=== PATIENT | male | born 1970 | race Caucasian/White ===

== ENCOUNTER → 2016-04-24 | Outpatient (CLI) | payer OTHER ==
[~2016-04-24] MED LIST: ACET-1256 PO; HYDR-5688 PO; IBUP-103 PO; NAPR1TAB9 PO
== END | disposition home or self-care (01) ==
LOC: C.LAB 20:11
DX: Z02.83 Encounter for blood-alcohol and blood-drug test (principal)

== ENCOUNTER 2016-06-30 21:55 | Emergency (ER) | payer OTHER ==
[~2016-06-30] VITALS: Ht 172.7 cm; Wt 64.6 kg
[~2016-06-30 21:55] MED LIST changes: -ACET-1256 PO; -HYDR-5688 PO; -NAPR1TAB9 PO
[2016-06-30 21:58] VITALS: BP 126/81; TEMP 36.9; Ht 172.7 cm; Wt 64.6 kg
[2016-06-30] MEDS ORDERED: KETOROLAC TROMETHAMINE 60 MG/2 ML VIAL IM STA (22:16)
[2016-06-30] MEDS ORDERED: TROLAMINE SALICYLATE 10% CRM 255 APPLN/85 GM TUBE EXT STA (22:16)
[2016-06-30] MEDS ORDERED: OXYCODONE IR HOME PACK PO ONE (22:30)
[2016-06-30 22:44] VITALS: PULSE 84; O2SAT 99
--- NOTE | 2016-07-01 03:05 | EMERGENCY ROOM VISIT NOTE ---
History First contact with patient: 22:12 Chief Complaint: SHOULDER PAIN Stated Complaint: RT SHOULDER AREA PAIN History of Present Illness The patient is a 45 year old male who presents to the Emergency Room with complaints of right upper back pain for the past month that is steadily getting worse described as aching, ranging in severity currently 6 out of 10 worse with movement and better with rest. 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 No fall. Patient denies chest pain, dyspnea, clavicular pain, spinal pain , numbness, tingling. No direct injury to the area. Review of Systems See HPI for pertinent positives & negatives. A total of 10 systems reviewed and were otherwise negative. Past Medical/Surgical History Medical Problems: (1) Asthma (2) Back pain (3) Back pain, chronic (4) Bronchitis (5) Cervical strain (6) closed reduction right hand (7) Migraine (8) Neck pain (9) Neck pain, chronic (10) Neck pain, chronic (11) Right hand paresthesia (12) Right shoulder pain (13) Sciatica (14) Shoulder pain, left (15) skin problems (16) stomach ulcer Family History Diabetes mellitus Heart disease Hypertension Lung disease Social History Smoking Status: Current Every Day Smoker Alcohol Use: occasionally Drug Use: none Marital Status: in relationship Housing Status: lives with significant other Occupation Status: employed Current/Historical Medications Scheduled PRN Ibuprofen Tab (Advil), 800 MG PO Q8 PRN for Pain or Fever Naproxen (Aleve), 440-660 MG PO 2-3XD PRN for Pain Allergies Coded Allergies: Carrot (Verified Allergy, Severe, "THROAT SHUTS", 06/30/16) Onion (Verified Allergy, Mild, GI SYMPTOMS, 06/30/16) No Known Drug Allergy (Verified Allergy, Unknown, none, 06/30/16) Physical Exam Vital Signs Date Time Temp Pulse Resp B/P Pulse Ox O2 Delivery O2 Flow Rate FiO2 06/30/16 22:44 84 18 99 Room Air 06/30/16 21:58 36.9 52 18 126/81 98 Room Air Pain Rating (0-10): 9.0 Physical Exam VITALS: Vitals are noted on the nurse's note and reviewed by myself. Vital signs stable. GENERAL: Pleasant male, in no acute distress, nondiaphoretic, well-developed well-nourished. SKIN: Capillary reflex less than 2 seconds. HEENT: Normocephalic. PERRLA. EOMI. Nares patent. Mucous membranes moist. Neck is supple without nuchal rigidity. HEART: Regular rate and rhythm without murmurs gallops or rubs. LUNGS: Clear to auscultation bilaterally without wheezes, rales or rhonchi. No retractions or accessory muscle use. ABDOMEN: Positive bowel sounds x 4. Normal tympanic percussion. Soft, nontender, without masses or organomegaly. Penn sign negative. No guarding or rebound tenderness. MUSCULOSKELETAL: No gross musculoskeletal defects. No thoracic or lumbar tenderness on exam, right upper playback operator to palpation easily reproducing symptoms NEURO: Patient was alert and oriented to person place and time. Normal sensation to light and sharp touch. No focal neurological deficits. Medical Decision & Procedures Medications Administered Medications (Trade) Dose Ordered Sig/Pollo Route Start Time Stop Time Status Last Admin Dose Admin Ketorolac Tromethamine (Toradol Inj) 60 mg NOW STAT IM 06/30/16 22:16 06/30/16 22:21 DC 06/30/16 22:33 60 MG Oxycodone HCl (Roxicodone Immediate Rel 5MG Home Pack) 1 homepack UD ONCE PO 06/30/16 22:30 06/30/16 22:31 DC 06/30/16 22:33 1 HOMEPACK Trolamine Salicylate (Myoflex Cream) 1 appln NOW STAT EXT 06/30/16 22:16 06/30/16 22:21 DC 06/30/16 22:33 1 APPLN ED Course Prior records/ancillary studies reviewed. Triage Nursing notes reviewed. The patient's history was concerning for back pain. Differential diagnosis: Etiologies such as musculoskeletal, disc herniation, fracture, aortic disease, metastatic disease, cord compression, discitis, infection, renal colic, gastrointestinal, acute exacerbation of chronic back pain, sciatica, cauda equina, as well as others were entertained. Physical findings: As above. No focal neurologic findings noted. ER treatment provided: Toradol, OxyIR home pack On reassessment the patient felt better. Diagnostics interpreted by me: Deferred This appears to be consistent with thoracic strain. Patient was neurovascularly and neurologically intact. No deficits on exam. No spinal pain. He was advised to stretch the area out and take medications as directed. He was advised to follow-up with orthopedics if symptoms persist for possible physical therapy or here in the ER sooner for severe pain, numbness, tingling, worsening signs or symptoms or as needed. The patient's physical examination and detailed history did not reveal any red flags for back pain such as those listed in the differential diagnosis. Therefore advanced diagnostics and consultations were felt to be unwarranted. By the evaluation outlined above emergent etiologies such as fracture, aortic disease, metastatic disease, infection, renal colic, gastrointestinal, cord compression, cauda equina, as well as others were deemed relatively unlikely. The pt informed about the findings as listed above. All questions were answered and pleased with the treatment. Return instructions were outlined and the patient was discharged in stable condition. Referral: The patient was referred back to orthopedics and/or primary care physician for follow-up in 2 to 3 days for a recheck of the current condition. Medical Decision As above Impression Primary Impression: Muscle strain of right upper back Departure Information Dispostion Home / Self-Care Condition GOOD Referrals Milind Banuelos MD Forms HOME CARE DOCUMENTATION FORM, Work Instructions, Return To Work: 1 day IMPORTANT VISIT INFORMATION Patient Instructions Back Pain - [facility], [facility] Additional Instructions Oxycodone (OxyIR) 5mg: Take 1-2 pills every four hours for breakthrough pain. Avoid alcohol, operating machinery or dangerous equipment, working on ladders or roofs, DRIVING, or situations where being under the influence may be dangerous. It is recommended to use an ikrv-lrk-onaiygz stool softener such as Colace, 100mg twice daily while taking this medication to avoid constipation. Oxycodone/Acetaminophen (Percocet) 5/325mg: Take 1-2 pills every four hours for breakthrough pain. Avoid alcohol, operating machinery or dangerous equipment, working on ladders or roofs, DRIVING, or situations where being under the influence may be dangerous. It is recommended to use an ducy-wsi-ytrjcfd stool softener such as Colace, 100mg twice daily while taking this medication to avoid constipation. Ibuprofen(Motrin, Advil) may be used for fever or pain. Use 600mg every six hours as needed. Take with food. Avoid using more than 2400mg in a 24 hour period. Do not use 2400mg per day for more than three consecutive days without physician direction. Prolonged inappropriate use can lead to stomach upset or ulcers. This medication can be taken if you need to drive, work, or perform activities which may be dangerous when taking narcotic pain medication. (AND/OR) Acetaminophen(Tylenol) may be used for fever or pain. Use 1000mg every six hours as needed. Avoid using more than 3000mg in a 24 hour period. This medication can be taken if you need to drive, work, or perform activities which may be dangerous when taking narcotic pain medication. Rest and avoid heavy lifting until your symptoms resolve and then gradually return to full activity. A good rule of thumb is if it hurts your back to perform a certain activity, then it should be avoided until you are healthy again. A heating pad, warm compresses, or a hot shower may help with tight muscles and can be done several times a day as needed. Stretch the area out as shown in the ER. Continue current medications. Return to the ER immediately for any numbness, tingling, severe pain, loss of control of your bowels or bladder, inability to walk, or as needed. Follow up with your primary care physician/orthopedics within 3-5 days for a recheck of your current condition. Work Instructions Return To Work: 1 day Problem Qualifiers Primary Impression: Muscle strain of right upper back Encounter type: initial encounter Qualified Codes: S29.012A - Strain of muscle and tendon of back wall of thorax, initial encounter
== END 2016-06-30 22:46 | disposition home or self-care (01) ==
LOC: C.EDB 21:56
DX: S23.3XXA Sprain of ligaments of thoracic spine, initial encounter (principal); X58.XXXA Exposure to other specified factors, initial encounter; J45.909 Unspecified asthma, uncomplicated; F17.200 Nicotine dependence, unspecified, uncomplicated; Z87.828 Personal history of other (healed) physical injury and trauma; Z87.19 Personal history of other diseases of the digestive system; Z91.018 Allergy to other foods; Z83.3 Family history of diabetes mellitus; Z82.49 Family history of ischemic heart disease and other diseases of the circulatory system

== ENCOUNTER 2016-11-05 19:28 | Emergency (ER) | payer OTHER ==
[~2016-11-05] VITALS: Ht 170.2 cm; Wt 64.2 kg
[2016-11-05 19:56] VITALS: TEMP 36.8; Ht 170.2 cm; Wt 64.2 kg
[2016-11-05] MEDS ORDERED: ACET-1256 PO (20:22)
[2016-11-05] MEDS ORDERED: KETOROLAC TROMETHAMINE 60 MG/2 ML VIAL IM STA (20:27)
[2016-11-05] MEDS ORDERED: MoRPHine SULFATE 10 MG/ML CARP/VIAL IM STA (20:27)
--- NOTE | 2016-11-05 21:09 | DIAGNOSTIC IMAGING REPORT ---
L-SPINE MIN 4 VIEWS ROUTINE CLINICAL HISTORY: Low back pain. COMPARISON: Lumbar spine radiograph January 15, 2011. FINDINGS: 5 mm of anterolisthesis of L5 on S1 due to bilateral L5 pars defects is noted. Anterolisthesis has mildly increased since study of January 15, 2011. There is no acute lumbar spine fracture. Vertebral body heights are maintained. There is mild disc space narrowing at L5-S1. Sacroiliac joints are intact. IMPRESSION: 1. No acute lumbar spine fracture. 2. Slight increase in grade I anterolisthesis of L5 on S1 due to bilateral L5 pars defects since radiographs of January 15, 2011. 3. Mild disc space narrowing at L5-S1. Electronically signed by: Parrish Farley M.D. 11/05/2016 9:07 PM Dictated Date/Time: 11/05/2016 9:05 PM
[2016-11-05] MEDS ORDERED: MoRPHine SULFATE 4 MG/ML 1 ML CARP\\VIAL ONE (21:48)
[2016-11-05] MEDS ORDERED: MoRPHine SULFATE 2 MG/ML CARP ONE (21:49)
[2016-11-05] MEDS ORDERED: NAPR1TAB9 PO (22:31)
[2016-11-05] MEDS ORDERED: HYDR-5688 PO (22:51)
--- NOTE | 2016-11-05 22:52 | EMERGENCY ROOM VISIT NOTE ---
History First contact with patient: 20:10 Chief Complaint: BACK PAIN Stated Complaint: LOWER LEFT BACK PAIN History of Present Illness The patient is a 46 year old male who presents to the Emergency Room with complaints of left lower back pain. The patient states that he has had pain in the left lower back since yesterday. The pain initially started when he was driving home from work. The patient states that the pain has been worse with movement. He has had difficulty sleeping due to the pain. The pain worsened while he was at work today. He does report a history of back problems and was told that he has an issue where his vertebrae is too far forward. He rates his discomfort a 10/10. He has taken imbu-ubj-mccjzdm medications with no relief. He denies any radiation of pain in his legs, numbness, weakness, fevers, bowel or bladder incontinence. Review of Systems A complete 10 point review of systems was reviewed with the patient with pertinent positives and negatives as per history of present illness. All else were negative. Past Medical/Surgical History Medical Problems: (1) Asthma (2) Back pain (3) Back pain, chronic (4) Bronchitis (5) Cervical strain (6) closed reduction right hand (7) Migraine (8) Neck pain (9) Neck pain, chronic (10) Neck pain, chronic (11) Right hand paresthesia (12) Right shoulder pain (13) Sciatica (14) Shoulder pain, left (15) skin problems (16) stomach ulcer Family History Diabetes mellitus Heart disease Hypertension Lung disease Social History Smoking Status: Current Every Day Smoker Alcohol Use: occasionally Drug Use: none Marital Status: in relationship Housing Status: lives with significant other Occupation Status: employed Current/Historical Medications Scheduled PRN Acetaminophen (Tylenol), 1,000 MG PO Q4 PRN for Pain Hydrocodone/Acetaminophen 5MG/325MG (Bristow 5MG/325MG), 1-2 TABLET PO Q4H PRN for Pain Naproxen (Aleve), 440-660 MG PO 2-3XD PRN for Pain Physical Exam Vital Signs Date Time Temp Pulse Resp B/P (MAP) Pulse Ox O2 Delivery O2 Flow Rate FiO2 11/05/16 22:55 70 16 122/76 97 Room Air 11/05/16 21:56 78 20 105/66 97 11/05/16 19:56 36.8 75 18 114/65 97 Room Air Physical Exam VITALS: Vitals are noted on the nurse's note and reviewed by myself. Vital signs stable. GENERAL: This is a 46-year-old male, in no acute distress, nondiaphoretic, well- developed well-nourished. SKIN: The skin was without rashes. NECK: Supple without nuchal rigidity. HEART: Regular rate and rhythm without murmurs gallops or rubs. LUNGS: Clear to auscultation bilaterally without wheezes, rales or rhonchi. ABDOMEN: Soft, nontender to palpation. MUSCULOSKELETAL: There is vague left lumbar tenderness to palpation. There is tenderness of the lumbar spinous processes. Full range of motion and strength 5 /5 in bilateral lower extremities. Patellar reflexes 2+ bilaterally. Normal sensation of bilateral laxity. NEURO: Patient was alert and oriented to person place and time. Medical Decision & Procedures ER Provider Diagnostic Interpretation: L-SPINE MIN 4 VIEWS ROUTINE FINDINGS: 5 mm of anterolisthesis of L5 on S1 due to bilateral L5 pars defects is noted. Anterolisthesis has mildly increased since study of January 15, 2011. There is no acute lumbar spine fracture. Vertebral body heights are maintained. There is mild disc space narrowing at L5-S1. Sacroiliac joints are intact. IMPRESSION: 1. No acute lumbar spine fracture. 2. Slight increase in grade I anterolisthesis of L5 on S1 due to bilateral L5 pars defects since radiographs of January 15, 2011. 3. Mild disc space narrowing at L5-S1. Medications Administered Medications (Trade) Dose Ordered Sig/Pollo Route Start Time Stop Time Status Last Admin Dose Admin Ketorolac Tromethamine (Toradol Inj) 60 mg NOW STAT IM 11/05/16 20:27 11/05/16 20:29 DC 11/05/16 21:53 60 MG Morphine Sulfate (MoRPHine SULFATE INJ) 4 mg STK-MED ONCE .ROUTE 11/05/16 21:48 11/05/16 21:49 DC 11/05/16 21:52 4 MG Morphine Sulfate (MoRPHine SULFATE INJ) 2 mg STK-MED ONCE .ROUTE 11/05/16 21:49 11/05/16 21:50 DC 11/05/16 21:52 2 MG Medical Decision Differential diagnosis includes cauda equina syndrome, cord compression, disc herniation, muscle spasm, lumbar strain, epidural abscess, malignancy, transverse myelitis, urinary tract infection, colitis, diverticulitis, kidney stone, among others. The patient was evaluated as above. He presents with left lower back pain. X- rays were unremarkable. There is no numbness, weakness or incontinence to suggest cauda equina syndrome or cord compression. The patient was given a short course of pain medication and instructed to follow-up with his primary care provider for further hydration and treatment. He will return for any worsening symptoms. He verbalized understanding of my assessment and treatment plan and was discharged home in good condition. [facility] Drug Monitoring Program Search Results: patient reviewed within database Medication Reconcilliation Current Medication List: was personally reviewed by me Blood Pressure Screening Patient's blood pressure: Normal blood pressure Impression Primary Impression: Lumbar back pain Departure Information Dispostion Home / Self-Care Condition GOOD Prescriptions Hydrocodone/Acetaminophen 5MG/325MG (Bristow 5MG/325MG) Tab 1-2 TABLET PO Q4H Y for Pain, #10 TAB For Initial Treatment Prov: Saida Castro .EDSON 11/05/16 Referrals No Doctor, Assigned (PCP) Patient Instructions My [facility] [address] Additional Instructions You have been treated in the Emergency Department for Back Pain. You have received pain medicine in the emergency department which impairs your ability to operate a vehicle. It is illegal for you to drive after receiving these medicines. You have been prescribed Bristow to be used for pain control. This is a narcotic medication. You cannot drive or consume alcohol while on this medicine. This medicine should only be used for pain that cannot be controlled with over-the- counter pain medicines. For pain control, you can use the following kzga-opt-qhwarsl medicines (if >12 yo): - Regular strength (325mg/tab) Tylenol (acetaminophen) 2 tabs every 4-6 hours as needed. Do not exceed 12 tablets in a 24 hour period. Avoid taking more than 4 grams (4000 mg) of Tylenol per day. This includes any other sources of acetaminophen you may take on a regular basis. - Regular strength (200 mg/tab) Advil (ibuprofen) 1-2 tabs every 4-6 hours as needed. Do not exceed a dose of 3200 mg per day. If this is an acute injury, ice can be applied to the area of pain for the first 3 days to help decrease pain and inflammation. After the first 3 days, a heating pad can be used over the area for continued soothing relief. You should schedule a follow-up appointment in 2-3 days with your Primary Care Provider for further evaluation and treatment of your back pain. Return to the Emergency Department if your current symptoms worsen despite treatment course outlined above, or if you develop any of the following symptoms : intractable pain despite aforementioned treatment course, loss of control of your bowel or bladder, numbness or tingling in your groin, or development of a fever.
[2016-11-05 22:55] VITALS: BP 122/76; PULSE 70; O2SAT 97
== END 2016-11-05 23:00 | disposition home or self-care (01) ==
LOC: C.EDB 19:29 → C.EDD 23:00
DX: M54.5 Low back pain (principal); G89.29 Other chronic pain; M54.2 Cervicalgia; J45.909 Unspecified asthma, uncomplicated; F17.200 Nicotine dependence, unspecified, uncomplicated; Z83.3 Family history of diabetes mellitus; Z82.49 Family history of ischemic heart disease and other diseases of the circulatory system

== ENCOUNTER 2017-04-12 09:59 | Emergency (ER) | payer OTHER ==
[~2017-04-12] VITALS: Ht 172.7 cm; Wt 71.0 kg
[~2017-04-12 09:59] MED LIST changes: +ACET-1256 PO; +HYDR-5688 PO; -IBUP-103 PO; +NAPR1TAB9 PO
[2017-04-12 10:05] VITALS: Ht 172.7 cm; Wt 71.0 kg
[2017-04-12] MEDS ORDERED: SODIUM CHLORIDE 0.9% 1000ML 1,000 ML IV STA (10:29)
[2017-04-12] MEDS ORDERED: KETOROLAC TROMETHAMINE 30 MG/ML VIAL IV STA (10:29)
--- NOTE | 2017-04-12 10:47 | DIAGNOSTIC IMAGING REPORT ---
CHEST ONE VIEW PORTABLE CLINICAL HISTORY: Evaluate Fever/Sepsis COMPARISON STUDY: Chest radiograph December 13, 2015. FINDINGS: Lung volumes are normal. There is no pneumothorax or pleural effusion. There is no evidence of pulmonary edema. No consolidation is identified. Cardiac size is normal. Mediastinal contours are normal. IMPRESSION: No acute cardiopulmonary findings. Electronically signed by: Parrish Farley M.D. 04/12/2017 10:45 AM Dictated Date/Time: 04/12/2017 10:45 AM
[2017-04-12 11:04] LABS: BASO % 0.4 %; BASO ABS # 0.04 K/uL (0-0.2); EOS % 3.3 %; EOS ABS # 0.36 K/uL (0-0.5); HEMATOCRIT 41.6 % (42-52); HEMOGLOBIN 14.3 g/dL (14.0-18.0); IG# 0.03 K/uL (0.00-0.02); LYMPH % 19.2 %; LYMPH ABS # 2.12 K/uL (1.2-3.4); MEAN CELL VOLUME 91.4 fL (80-100); MEAN CORPUSCULAR HEMOGLOBIN 31.4 pg (25-34); MEAN CORPUSCULAR HGB CONC 34.4 g/dl (32-36); MEAN PLATELET VOLUME 8.6 fL (7.4-10.4); MONO % 6.3 %; NEUT % 70.5 %; PLATELET COUNT 264 K/uL (130-400); RED CELL DISTRIBUTION WIDTH CV 13.9 % (11.5-14.5); RED CELL DISTRIBUTION WIDTH SD 46.2 fL (36.4-46.3); WHITE BLOOD COUNT 11.05 K/uL (4.8-10.8)
[2017-04-12 11:13] LABS: PTT PATIENT 26.1 SECONDS (21.0-31.0)
[2017-04-12 11:21] LABS: BLOOD UREA NITROGEN 15 mg/dl (7-18); CALCIUM 8.6 mg/dl (8.5-10.1); CARBON DIOXIDE 29 mmol/L (21-32); CREATININE 0.87 mg/dl (0.60-1.40); GLUCOSE 91 mg/dl (70-99); POTASSIUM 4.1 mmol/L (3.5-5.1); SODIUM 137 mmol/L (136-145)
[2017-04-12 11:26] LABS: CKMB 5.1 ng/ml (0.5-3.6)
[2017-04-12 11:29] LABS: INFLUENZA B ANTIGEN Neg for Influ B (NEG)
[2017-04-12 11:31] VITALS: TEMP 36.4
--- NOTE | 2017-04-12 12:24 | EMERGENCY ROOM VISIT NOTE ---
History Report prepared by Frida: Vanessa Martinez Under the Supervision of: Monica BrownO. First contact with patient: 10:12 Chief Complaint: FLU LIKE SX Stated Complaint: FLU SYMPOMS,SYNCOPY,DIZZINESS,HEADACHE History of Present Illness The patient is a 46 year old male who presents to the Emergency Room with complaints of persistent flu like symptoms that began 3 days ago. The patient states he has been having headaches, chills, and diaphoresis. His girlfriend notes that the patient was feeling dizzy, weak, and having a difficult time walking around the house this morning. The patient states that he currently has a sore throat. He denies taking any medication to relieve his symptoms. The patient denies being around anyone with similar symptoms. Source of History: patient Onset: 3 days ago Position: other (global) Quality: other (flu like symptoms) Timing: other (persistent) Associated Symptoms: + chills, + headache, + diaphoresis, + sorethroat, + weakness Note: Associated symptoms include dizziness. Review of Systems See HPI for pertinent positives & negatives. A total of 10 systems reviewed and were otherwise negative. Past Medical & Surgical Medical Problems: (1) Asthma (2) Back pain (3) Back pain, chronic (4) Bronchitis (5) Cervical strain (6) closed reduction right hand (7) Migraine (8) Neck pain (9) Neck pain, chronic (10) Neck pain, chronic (11) Right hand paresthesia (12) Right shoulder pain (13) Sciatica (14) Shoulder pain, left (15) skin problems (16) stomach ulcer Family History Diabetes mellitus Heart disease Hypertension Lung disease Social History Smoking Status: Current Every Day Smoker Alcohol Use: occasionally Drug Use: none Marital Status: in relationship Housing Status: lives with significant other Occupation Status: employed Current/Historical Medications No Active Prescriptions or Reported Meds Allergies Coded Allergies: Carrot (Verified Allergy, Severe, "THROAT SHUTS", 04/12/17) Onion (Verified Allergy, Mild, GI SYMPTOMS, 04/12/17) No Known Drug Allergy (Verified Allergy, Unknown, none, 11/05/16) Physical Exam Vital Signs Date Time Temp Pulse Resp B/P (MAP) Pulse Ox O2 Delivery O2 Flow Rate FiO2 04/12/17 11:31 36.4 67 16 107/61 98 Room Air 04/12/17 10:48 67 04/12/17 10:05 36.8 75 16 112/61 95 Room Air Physical Exam CONSTITUTIONAL/VITAL SIGNS: Reviewed / noted above. GENERAL: Non-toxic in appearance. INTEGUMENTARY: Warm, dry, and [place]. HEAD: Normocephalic. EYES: without scleral icterus or trauma. ENT/OROPHARYNX: clear and moist. LYMPHADENOPATHY/NECK: Is supple without lymphadenopathy or meningismus. RESPIRATORY: Lungs clear and equal. CARDIOVASCULAR: Regular rate and rhythm. GI/ABDOMEN: Soft and nontender. No organomegaly or pulsatile mass. No rebound or guarding. Normal bowel sounds. EXTREMITIES: Warm and well perfused. BACK: No CVA tenderness. NEUROLOGICAL: Intact without focal deficits. PSYCHIATRIC: normal affect. MUSCULOSKELETAL: Normally developed with good muscle tone. Medical Decision & Procedures ER Provider Diagnostic Interpretation: Radiology results as stated below per my review and radiologist interpretation: CHEST ONE VIEW PORTABLE CLINICAL HISTORY: Evaluate Fever/Sepsis COMPARISON STUDY: Chest radiograph December 13, 2015. FINDINGS: Lung volumes are normal. There is no pneumothorax or pleural effusion. There is no evidence of pulmonary edema. No consolidation is identified. Cardiac size is normal. Mediastinal contours are normal. IMPRESSION: No acute cardiopulmonary findings. Electronically signed by: Parrish Farley M.D. 04/12/2017 10:45 AM Dictated Date/Time: 04/12/2017 10:45 AM Laboratory Results 04/12/17 10:43 Red Blood Count 4.55, Mean Corpuscular Volume 91.4, Mean Corpuscular Hemoglobin 31.4, Mean Corpuscular Hemoglobin Concent 34.4, Mean Platelet Volume 8.6, Neutrophils (%) (Auto) 70.5, Lymphocytes (%) (Auto) 19.2, Monocytes (%) (Auto) 6.3, Eosinophils (%) (Auto) 3.3, Basophils (%) (Auto) 0.4, Neutrophils # (Auto) 7.80, Lymphocytes # (Auto) 2.12, Monocytes # (Auto) 0.70, Eosinophils # (Auto) 0.36, Basophils # (Auto) 0.04 04/12/17 10:43 Test 04/12/17 10:43 04/12/17 10:45 04/12/17 11:27 White Blood Count 11.05 K/uL (4.8-10.8) Red Blood Count 4.55 M/uL (4.7-6.1) Hemoglobin 14.3 g/dL (14.0-18.0) Hematocrit 41.6 % (42-52) Mean Corpuscular Volume 91.4 fL (80-100) Mean Corpuscular Hemoglobin 31.4 pg (25-34) Mean Corpuscular Hemoglobin Concent 34.4 g/dl (32-36) Platelet Count 264 K/uL (130-400) Mean Platelet Volume 8.6 fL (7.4-10.4) Neutrophils (%) (Auto) 70.5 % Lymphocytes (%) (Auto) 19.2 % Monocytes (%) (Auto) 6.3 % Eosinophils (%) (Auto) 3.3 % Basophils (%) (Auto) 0.4 % Neutrophils # (Auto) 7.80 K/uL (1.4-6.5) Lymphocytes # (Auto) 2.12 K/uL (1.2-3.4) Monocytes # (Auto) 0.70 K/uL (0.11-0.59) Eosinophils # (Auto) 0.36 K/uL (0-0.5) Basophils # (Auto) 0.04 K/uL (0-0.2) RDW Standard Deviation 46.2 fL (36.4-46.3) RDW Coefficient of Variation 13.9 % (11.5-14.5) Immature Granulocyte % (Auto) 0.3 % Immature Granulocyte # (Auto) 0.03 K/uL (0.00-0.02) Prothrombin Time 10.2 SECONDS (9.0-12.0) Prothromb Time International Ratio 1.0 (0.9-1.1) Activated Partial Thromboplast Time 26.1 SECONDS (21.0-31.0) Partial Thromboplastin Ratio 1.0 Anion Gap 3.0 mmol/L (3-11) Est Creatinine Clear Calc Drug Dose 103.7 ml/min Estimated GFR () 120.8 Estimated GFR (Non- 104.2 BUN/Creatinine Ratio 17.1 (10-20) Calcium Level 8.6 mg/dl (8.5-10.1) Total Creatine Kinase 400 U/L (39-308) Creatine Kinase MB 5.1 ng/ml (0.5-3.6) Creatine Kinase MB Ratio 1.3 (0-3.0) Troponin I < 0.015 ng/ml (0-0.045) Influenza Type A Antigen Neg for Influ A (NEG) Influenza Type B Antigen Neg for Influ B (NEG) Urine Color YELLOW Urine Appearance CLEAR (CLEAR) Urine pH 7.5 (4.5-7.5) Urine Specific [place] 1.017 (1.000-1.030) Urine Protein NEG (NEG) Urine Glucose (UA) NEG (NEG) Urine Ketones NEG (NEG) Urine Occult Blood NEG (NEG) Urine Nitrite NEG (NEG) Urine Bilirubin NEG (NEG) Urine Urobilinogen NEG (NEG) Urine Leukocyte Esterase NEG (NEG) Laboratory results as stated above per my review. Medications Administered Medications (Trade) Dose Ordered Sig/Pollo Route Start Time Stop Time Status Last Admin Dose Admin Sodium Chloride 1,000 ml @ 999 mls/hr Q1H1M STAT IV 04/12/17 10:29 04/12/17 11:29 DC 04/12/17 10:54 999 MLS/HR Ketorolac Tromethamine (Toradol Inj) 30 mg NOW STAT IV 04/12/17 10:29 04/12/17 10:31 DC 04/12/17 10:55 30 MG ECG Indication: other (flu like symptoms) Rate (beats per minute): 62 Rhythm: normal sinus Findings: no acute ischemic change, no ectopy Change: Electrocardiogram as interested by me ED Course 1027: Previous medical records were reviewed. The patient was evaluated in room C10. A complete history and physical examination was performed. 1029: Ordered Toradol Inj 30mg IV and Sodium Chloride 1000ml @ 999 mls/hr IV. 1225: On reevaluation, the patient is resting comfortably. I discussed the results and findings with the patient. He verbalized agreement of the treatment plan. The patient was discharged home. Medical Decision Differential includes viral illness, influenza, streptococcal pharyngitis, meningitis, pneumonia, sinusitis, UTI, pyelonephritis, and otitis media. This is a 46-year-old male who presents to the ED with a chief complaint of flulike symptoms. The patient reports nasal congestion cough, chills for the past 2 days. He also reported a headache as well as some dizziness. His vital signs are normal here. He is afebrile. His exam was unremarkable. He has no photosensitivity or meningismus. White blood cell count was 11. PRP was unremarkable. Troponin was negative. Urine did not show infection. Flu was negative and a congestion x-ray was negative for acute disease. The patient was told results the test. He was treated with IV fluids and IV Toradol. He is felt to be stable for discharge. [id number] flu cold medicine was recommended. Medication Reconcilliation Current Medication List: was personally reviewed by me Blood Pressure Screening Patient's blood pressure: Normal blood pressure Impression Primary Impression: Influenza-like symptoms Scribe Attestation The scribe's documentation has been prepared under my direction and personally reviewed by me in its entirety. I confirm that the note above accurately reflects all work, treatment, procedures, and medical decision making performed by me. Departure Information Dispostion Home / Self-Care Prescriptions No Active Prescriptions or Reported Meds Referrals No Doctor, Assigned (PCP) Forms HOME CARE DOCUMENTATION FORM, IMPORTANT VISIT INFORMATION Patient Instructions My [facility] [employer] Additional Instructions Take [id number] cold and flu medicine for your symptoms. Follow-up with your doctor for further care and evaluation in 3-5 days. Return to the emergency department for worsening or new symptoms or any concerns. You have been examined and treated today on an emergency basis only. This is not a substitute for, or an effort to provide, complete comprehensive medical care. It is impossible to recognize and treat all injuries or illnesses in a single emergency department visit. It is therefore important that you follow up closely with your doctor. Call as soon as possible for an appointment.
[2017-04-12 12:34] VITALS: BP 107/68; PULSE 63; O2SAT 96
== END 2017-04-12 12:35 | disposition home or self-care (01) ==
LOC: C.EDB 10:02 → C.EDC 12:35
DX: R51 Headache (principal); R68.83 Chills (without fever); R61 Generalized hyperhidrosis; R42 Dizziness and giddiness; R53.1 Weakness; J02.9 Acute pharyngitis, unspecified; J45.909 Unspecified asthma, uncomplicated; F17.200 Nicotine dependence, unspecified, uncomplicated; Z98.890 Other specified postprocedural states; Z83.3 Family history of diabetes mellitus; Z82.49 Family history of ischemic heart disease and other diseases of the circulatory system